=== PATIENT | male | born 1960 | race Caucasian/White ===

== ENCOUNTER → 2016-05-09 | Outpatient (CLI) | payer OTHER | LOC: RAD 15:11 ==

== ENCOUNTER → 2017-09-03 | Day surgery (SDC) | payer BC | LOC: MSO 07:25 | DX: Z12.11 Encounter for screening for malignant neoplasm of colon (principal); E11.9 Type 2 diabetes mellitus without complications; Z79.84 Long term (current) use of oral hypoglycemic drugs | CPT/HCPCS: 00812; J2704; J3010; J7030; J7120 ==

== ENCOUNTER → 2017-10-17 | Outpatient (CLI) | payer BC | LOC: RAD 08:55 | DX: M79.662 Pain in left lower leg (principal) ==

== ENCOUNTER → 2022-06-15 | Outpatient (CLI) | payer BC | LOC: RAD 10:25 | DX: Z92.89 Personal history of other medical treatment (principal) ==

== ENCOUNTER → 2023-05-29 | Outpatient (CLI) | payer BC | LOC: RAD 15:30 | DX: M25.512 Pain in left shoulder (principal) ==